=== PATIENT | female | born 1960 | race Caucasian/White ===

== ENCOUNTER 2018-05-30 21:05 | Emergency (ER) | payer BC ==
[~2018-05-30] VITALS: Ht 170.2 cm; Wt 77.0 kg
[2018-05-31 00:37] LABS: BASOPHILS % 0.6 % (0.0-2.0); EOSINOPHILS % 0.3 % (0.0-5.0); HEMOGLOBIN. 13.5 g/dL (12.0-16.0); LYMPHOCYTES % 12.5 % (20.0-50.0); MEAN CORPUSCULAR VOLUME 89.8 fL (81.0-99.0); MEAN PLATELET VOLUME 9.6 fl (7.4-10.4); MONOCYTES % 4.8 % (2.0-8.0); NEUTROPHILS % 81.8 % (40.0-76.0); PLATELET 214 x1000/uL (130-400); RED BLOOD CELL COUNT 4.34 mill/uL (4.2-5.4); RED CELL DISTRIBUTION WIDTH 12.6 % (11.6-14.6)
[2018-05-31 00:50] LABS: CHLORIDE 110 mEq/L (98-107)
[2018-05-31 03:55] VITALS: BP 140/82
== END 2018-05-31 03:57 | disposition home or self-care (01) ==
LOC: ER 21:05 → CANBEDREQ 05-31 04:21
DX: R55 Syncope and collapse (principal); R20.0 Anesthesia of skin; I10 Essential (primary) hypertension
CPT/HCPCS: 36415; 71045; 81025; 83880; 84484; 93005; 99284